=== PATIENT | female | born 1975 | race Caucasian/White ===

== ENCOUNTER 2019-01-14 15:38 | Emergency (ER) | payer MEDICAID ==
[~2019-01-14] VITALS: Ht 157.5 cm; Wt 69.0 kg
[~2019-01-14 15:38] MED LIST: IBUP-1986 PO; METH4TAB3 PO; PRED50TA PO
[2019-01-14 15:48] VITALS: BP 152/105
--- NOTE | 2019-01-14 16:30 | NUR ---
Attempted to call listed number, with no [email or web address]
== END 2019-01-14 16:33 | disposition left against medical advice (07) ==
LOC: ER 15:39
DX: H92.09 Otalgia, unspecified ear (principal); Z53.21 Procedure and treatment not carried out due to patient leaving prior to being seen by health care provider

== ENCOUNTER 2021-10-24 12:31 | Emergency (ER) | payer MEDICAID ==
[~2021-10-24] VITALS: Ht 157.5 cm; Wt 62.7 kg
[2021-10-24 12:38] VITALS: BP 157/86
[2021-10-24] MEDS ORDERED: clindamycin 150mg capsule PO ONE (14:15)
[2021-10-24] MEDS ORDERED: HYDROcodone/acetaminophen 5mg/325mg tablet PO ONE (14:15)
[2021-10-24] MEDS ORDERED: CLIN300C71 PO (14:15)
== END 2021-10-24 14:33 | disposition home or self-care (01) ==
LOC: ER 12:32
DX: L03.316 Cellulitis of umbilicus (principal); R50.9 Fever, unspecified; E11.9 Type 2 diabetes mellitus without complications; Z86.14 Personal history of Methicillin resistant Staphylococcus aureus infection; Z56.0 Unemployment, unspecified; Z79.2 Long term (current) use of antibiotics; Z88.0 Allergy status to penicillin; Z88.1 Allergy status to other antibiotic agents; Z88.8 Allergy status to other drugs, medicaments and biological substances; Z79.899 Other long term (current) drug therapy
CPT/HCPCS: 99283

== ENCOUNTER 2022-04-05 00:33 | Emergency (ER) | payer MEDICAID ==
[~2022-04-05] VITALS: Ht 154.9 cm; Wt 61.4 kg
[2022-04-05] MEDS ORDERED: CETI-90 PO (01:30)
[2022-04-05] MEDS ORDERED: GABA-530 (01:30)
[2022-04-05] MEDS ORDERED: LISI40TA13 PO (01:30)
[2022-04-05] MEDS ORDERED: INSU100I31 SQ (01:30)
[2022-04-05] MEDS ORDERED: insulin regular, human 10 units/0.1 ml syringe IV ONE ×2 (02:55→04:05)
[2022-04-05] MEDS ORDERED: normal saline 1000ML IV soln IVB ONE (02:55)
[2022-04-05] MEDS ORDERED: insulin regular, human 10 units/0.1 ml syringe SQ ONE (04:05)
[2022-04-05 04:34] VITALS: BP 109/65
== END 2022-04-05 04:37 | disposition home or self-care (01) ==
LOC: ER 00:33
DX: E11.65 Type 2 diabetes mellitus with hyperglycemia (principal); L93.0 Discoid lupus erythematosus
CPT/HCPCS: 82948; 96361; 96374; 96376; 99285; J1815; J7030

== ENCOUNTER 2022-05-17 12:54 | Emergency (ER) | payer MEDICAID ==
[~2022-05-17] VITALS: Ht 157.5 cm; Wt 61.0 kg
[~2022-05-17 12:54] MED LIST changes: +CETI-90 PO; +GABA-530; -IBUP-1986 PO; +INSU100I31 SQ; +LISI40TA13 PO; -METH4TAB3 PO; -PRED50TA PO
[2022-05-17 13:30] VITALS: BP 175/104
[2022-05-17 15:29] LABS: BASOPHILS # (AUTO) 0.1 X10'3 (0-0.2); EOSINOPHILS # (AUTO) 0.4 X10'3 (0-0.9); EOSINOPHILS % (AUTO) 6.8 % (0-6); HEMATOCRIT 47.7 % (35.0-45.0); HEMOGLOBIN 16.5 g/dl (12.0-16.0); LYMPHOCYTES # (AUTO) 2.3 X10'3 (1.1-4.8); LYMPHOCYTES % (AUTO) 37.1 % (21-51); MEAN CORPUSCULAR HEMOGLOBIN 31.3 PG (27.0-31.0); MEAN CORPUSCULAR HGB CONC 34.5 g/dL (33.0-36.5); MEAN CORPUSCULAR VOLUME 90.7 FL (78-98); MEAN PLATELET VOLUME 8.1 FL (7.4-10.4); MONOCYTES # (AUTO) 0.7 X10'3 (0-0.9); MONOCYTES % (AUTO) 10.8 % (2-12); NEUTROPHILS # (AUTO) 2.8 X10'3 (1.8-7.7); NEUTROPHILS % (AUTO) 44.3 % (42-75); PLATELET COUNT 205 X10'3 (140-440); RED BLOOD COUNT 5.26 X10'6 (4.20-5.60); RED CELL DISTRIBUTION WIDTH 13.6 % (11.5-14.5); WHITE BLOOD COUNT 6.3 X10'3 (4.5-11.0)
[2022-05-17 15:40] LABS: COLOR,URINE YELLOW (Yellow); GLUCOSE, URINE NEGATIVE (Neg); KETONES,URINE NEGATIVE (Neg); LEUKOCYTE ESTERASE ,URINE TRACE (Neg); NITRITES, URINE NEGATIVE (Neg); OCCULT BLOOD,URINE MODERATE (Neg); PH,URINE 5.5 (4.8-8.0); PROTEIN,URINE NEGATIVE (Neg)
[2022-05-17 15:48] LABS: URINE HCG NEGATIVE (NEG)
[2022-05-17 16:02] LABS: CLARITY,URINE SLIGHTLY CLOUDY (Clear); UA COLLECTION TYPE CLN CATCH MIDSTREAM
[2022-05-17 16:04] LABS: SQUAMOUS EPITHELIAL CELL,UR MANY /LPF (FEW)
[2022-05-17 16:19] LABS: BACTERIA,URINE 1+ /HPF (Neg)
[2022-05-17 16:24] LABS: ALANINE AMINOTRANSFERASE 221 U/L (12-78); ALBUMIN 3.4 G/DL (3.4-5.0); ALBUMIN/GLOBULIN RATIO 0.7 (1.1-1.5); ALKALINE PHOSPHATASE 141 IU/L (46-116); ANION GAP 2 (8-16); ASPARTATE AMINO TRANSFERASE 152 U/L (10-37); BILIRUBIN,TOTAL 0.7 MG/DL (0.1-1.0); BLOOD UREA NITROGEN 18 MG/DL (7-18); BUN/CREATININE RATIO 26.5 (6.6-38.0); CHLORIDE 100 MMOL/L (99-107); CREATININE 0.68 MG/DL (0.40-0.90); GLUCOSE 193 MG/DL (70-104); LIPASE 139 U/L (73-393); POTASSIUM 3.4 MMOL/L (3.5-5.1); SODIUM 133 MMOL/L (135-145); TOTAL CARBON DIOXIDE 30.8 MMOL/L (24-32); eGFR > 90 ML/MIN
[2022-05-17] MEDS ORDERED: ketorolac trometh. 30mg/ml inj. IM ONE (16:35)
[2022-05-17] MEDS ORDERED: gabapentin 100mg capsule PO ONE (16:35)
== END 2022-05-17 16:58 | disposition home or self-care (01) ==
LOC: ER 12:54
DX: M13.862 Other specified arthritis, left knee (principal); M13.861 Other specified arthritis, right knee; E11.65 Type 2 diabetes mellitus with hyperglycemia; Z86.14 Personal history of Methicillin resistant Staphylococcus aureus infection; Z59.00 Homelessness unspecified; Z88.1 Allergy status to other antibiotic agents; Z79.899 Other long term (current) drug therapy; Z88.0 Allergy status to penicillin
CPT/HCPCS: 36415; 80053; 81001; 81025; 82948; 83690; 85025; 96372; 99283; J1885

== ENCOUNTER → 2024-02-20 | Outpatient (CLI) | payer MEDICAID | END | disposition home or self-care (01) | LOC: RAD 08:01 | PROVIDERS: ATTEND Preventive Medicine Public Health & General Preventive Medicine | DX: B18.2 Chronic viral hepatitis C (principal) | CPT/HCPCS: 76700 ==